=== PATIENT | female | born 1955 | race Caucasian/White ===

== ENCOUNTER 2024-04-25 11:00 | Outpatient (RCR) | payer BC, SELFPAY | END 2024-04-25 23:59 | disposition home or self-care (01) | LOC: PT 11:00 | PROVIDERS: Visit Provider Family Medicine | DX: G89.29 Other chronic pain (principal); M54.6 Pain in thoracic spine; M54.9 Dorsalgia, unspecified | CPT/HCPCS: 97110; 97163; 97530 ==

== ENCOUNTER 2024-10-10 08:55 | Outpatient (RCR) | payer BC, SELFPAY | END 2024-10-10 23:59 | disposition home or self-care (01) | LOC: PT 08:55 | PROVIDERS: Visit Provider Family Medicine | DX: M54.50 Low back pain, unspecified (principal); G89.29 Other chronic pain | CPT/HCPCS: 97163 ==

== ENCOUNTER 2024-11-03 16:56 | Outpatient (RCR) | payer BC, SELFPAY | END 2024-11-12 23:59 | disposition home or self-care (01) | LOC: PT 16:56 | PROVIDERS: Visit Provider Family Medicine | DX: M54.50 Low back pain, unspecified (principal); G89.29 Other chronic pain | CPT/HCPCS: 97110; 97164 ==